=== PATIENT | male | born 1950 | race Caucasian/White ===

== ENCOUNTER 2022-10-28 09:34 | Outpatient (OUT) | payer MEDICARE, OTHER, SELFPAY | END 2022-10-28 09:35 | PROVIDERS: PCP Podiatrist Foot & Ankle Surgery; Visit Provider Podiatrist Foot & Ankle Surgery | DX: T81.89XA Other complications of procedures, not elsewhere classified, initial encounter (principal); S90.424A Blister (nonthermal), right lesser toe(s), initial encounter | CPT/HCPCS: 99213; G0463 ==

== ENCOUNTER 2022-12-29 09:32 | Outpatient (OUT) | payer MEDICARE, OTHER, SELFPAY ==
--- NOTE | 2022-12-29 09:32 | XR_ITS ---
The [address] [address] Patient Name: LULU FREITAS MRN: [id number] date: 1950 Sex: M Assigned Patient Location: Current Patient Location: Accession/Order Number: [id number] Exam Date: 12/29/2022 09:40 Report Date: 12/29/2022 13:15 At the request of: JUAN DONALDSON Procedure: XR ankle RT min 3V EXAM: XR ankle RT min 3V HISTORY: Right ankle pain. COMPARISON: 09/14/2022. TECHNIQUE: 3 views right ankle. FINDINGS: Previous right distal fibular resection and placement of multiple antibiotic beads similar to prior. Tibiotalar and subtalar joints arthrodesis with long intramedullary teto intact without acute process. 2 proximal and single distal interlocking screws present. Stable chronic deformities with no interval acute fracture or bone destruction seen. Mild diffuse soft tissue edema and vascular calcifications. XR/XR ankle RT min 3V IMPRESSION: Essentially similar appearance to prior without interval acute process. Electronically authenticated by: YAMIL GONZALEZ Date: 12/29/2022 13:15
== END 2022-12-29 09:33 | disposition home or self-care (01) ==
LOC: WC 09:32
PROVIDERS: PCP Podiatrist Foot & Ankle Surgery; Visit Provider Podiatrist Foot & Ankle Surgery
DX: M25.571 Pain in right ankle and joints of right foot (principal); S90.424A Blister (nonthermal), right lesser toe(s), initial encounter; M21.6X1 Other acquired deformities of right foot; S90.421A Blister (nonthermal), right great toe, initial encounter
CPT/HCPCS: 73610; G0463

== ENCOUNTER 2023-04-27 14:06 | Outpatient (OUT) | payer MEDICARE, OTHER, SELFPAY ==
--- NOTE | 2023-04-27 | XR_ITS ---
The [address] [address] Patient Name: LULU FREITAS MRN: [id number] date: 1950 Sex: M Assigned Patient Location: [facility] Current Patient Location: Accession/Order Number: [id number] Exam Date: 04/27/2023 14:18 Report Date: 04/28/2023 01:43 At the request of: JUAN DONALDSON Procedure: XR ankle RT min 3V PROCEDURE: XR ankle RT min 3V HISTORY: RIGHT ANKLE PAIN COMPARISON: XR ankle right 12/29/2022 FINDINGS: BONES:Ankle and hindfoot fusion via intramedullary teto and locking screws; no hardware fracture or loosening. Resection of distal fibula. Numerous metallic foreign bodies lateral to the ankle and foot possibly representing antibiotic beads. SOFT TISSUES:Mild-moderate soft tissue swelling. EFFUSION:None visible. OTHER: Negative. XR/XR ankle RT min 3V IMPRESSION: 1. Stable surgical changes without evidence of hardware failure or change in alignment. 2. Persistent metallic foreign bodies or possibly antibiotic beads. Electronically authenticated by: FORREST PIPER Date: 04/28/2023 01:43
== END 2023-04-27 14:07 | disposition home or self-care (01) ==
LOC: RAD 14:06
PROVIDERS: Visit Provider Podiatrist Foot & Ankle Surgery
DX: M21.6X1 Other acquired deformities of right foot (principal)
CPT/HCPCS: 73610